=== PATIENT | male | born 1965 | race Caucasian/White ===

== ENCOUNTER 2018-02-20 19:32 | Emergency (ER) | payer BC, OTHER ==
--- NOTE | 2018-02-20 19:49 | PDOC ---
History of Present Illness - History of Present Illness Initial Comments: 02/20/18 20:24 HPI: The patient is a 52 year old male, with a significant past medical history of HTN (noncompliant for the past 8 months), who presents to the emergency department with, chest tightness for a week. He describes his chest pain as a constant, pressure-like pain worsening today with deep inspiration and shortness of breath. He endorses a recent long distance travel to [place] last week. As per patient, he was at his PCP, Dr. Olmedo office where he had an abnormal EKG done and was advised to report to the ED for further evaluation. He denies any calf pain or swelling. He denies any recent fevers, chills, headache or dizziness. He denies any recent nausea, vomit, diarrhea or constipation. He denies any recent dysuria, frequency, urgency or hematuria. PAST MEDICAL HISTORY: no significant history PAST SURGICAL HISTORY: no significant history FAMILY HISTORY: no pertinent history SOCIAL HISTORY: Pt lives with family and is employed. MEDICATIONS: reviewed ALLERGIES: As per nursing notes ROS: General: No fevers or chills, no weakness, no weight loss HEENT: No change in vision. No sore throat,. No ear pain +CardioVascular: Chest pain. Shortness of breath. Respiratory:No cough, or wheezing. Gastrointestinal: no nausea, vomiting, diarrhea or constipation, No rectal bleeding Genitourinary: No dysuria, hematuria, or frequency Musculoskeletal: No joint or muscle pain or swelling Neurologic: No headache, vertigo, dizziness or loss of consciousness Psychiatric: nor depression Skin: No rashes or easy bruising Endocrine: no increased thirst or abnormal weight change Allergic: no skin or latex allergy All other systems reviewed and normal Physical Exam: General: Well-nourished well-developed individual, no acute distress HEENT: Throat: Normal, tonsils normal, no erythema or exudate Neck: Supple, no meningeal signs, no lymphadenopathy Eyes::Pupils equal reactive and round, extraocular motion intact Chest: Nontender to palpation Cardiac: S1-S2 normal, regular rate and rhythm, no murmurs rubs or gallops Respiratory: Lungs clear to auscultation bilateral Abdomen: Soft, nondistended, normal bowel sounds, nontender to palpation diffusely Extremities: Warm, dry, no cyanosis, clubbing, or edema Skin: No rashes Neuro: Alert and oriented x3, nonfocal exam, grossly intact, normal gait Psych: Normal mood and affect <Carmen Pyle - Last Filed: 02/20/18 20:24> - General History Source: Patient Exam Limitations: No Limitations - History of Present Illness Initial Comments: A portion of this note was documented by scribe services under my direction. I have reviewed the details of the note, within reason, and agree with the documentation with the following case summary and management plan written by me. Patient treated in the ED. Nursing notes are reviewed and incorporated into the medical decision-making. Vital signs reviewed. Assessment and plan: This is a 52-year-old male comes in complaining of pleuritic-type chest pain 1 week. Patient said pain is associated with some shortness of breath. Patient has history significant for recent travel out of the country as well as hypertension. Patient saw his primary care doctor and was sent to the ED for further evaluation. Patient had an EKG that showed some left atrial enlargement and a probable old inferior [place]. Patient had CT angiogram of his chest to rule out PE which was negative. Patient had a chest x-ray that was negative Patient discharged home will follow-up with his primary care doctor 02/20/18 21:22 <Aracelis Willson I - Last Filed: 02/20/18 21:24> - General Chief Complaint: Pain Stated Complaint: CHEST TIGHTNESS X 1 WEEK Time Seen by Provider: 02/20/18 19:39 Past History <Carmen Pyle - Last Filed: 02/20/18 20:24> - Past Medical History Anemia: No Asthma: No Cancer: No Cardiac Disorders: No CVA: No COPD: No CHF: No Dementia: No Diabetes: No GI Disorders: No Disorders: No HTN: Yes Hypercholesterolemia: No Liver Disease: Yes (FATTY LIVER) Seizures: No Thyroid Disease: No - Surgical History Orthopedic Surgery: Yes (BACK) - Suicide/Smoking/Psychosocial Hx Smoking History: Never smoked Have you smoked in the past 12 months: No Information on smoking cessation initiated: No Hx Alcohol Use: No Drug/Substance Use Hx: No Substance Use Type: Alcohol Hx Substance Use Treatment: No <Aracelis Willson I - Last Filed: 02/20/18 21:24> - Past Medical History Allergies/Adverse Reactions: Allergies Allergy/AdvReac Type Severity Reaction Status Date / Time No Known Allergies Allergy Verified 02/20/18 19:35 Home Medications: Ambulatory Orders Lisinopril [Prinivil] 20 mg PO DAILY 06/07/14 *Physical Exam - Vital Signs Last Vital Signs Temp Pulse Resp BP Pulse Ox 98.3 F 77 16 155/102 H 96 02/20/18 19:36 02/20/18 19:36 02/20/18 19:36 02/20/18 20:20 02/20/18 19:36 <Carmen Pyle - Last Filed: 02/20/18 20:24> - Vital Signs Last Vital Signs Temp Pulse Resp BP Pulse Ox 98.3 F 77 16 153/109 H 96 02/20/18 19:36 02/20/18 19:36 02/20/18 19:36 02/20/18 19:36 02/20/18 19:36 <Aracelis Willson I - Last Filed: 02/20/18 21:24> Moderate Sedation - Procedure Monitoring Vital Signs: Procedure Monitoring Vital Signs Temperature 98.3 F 02/20/18 19:36 Pulse Rate 77 02/20/18 19:36 Respiratory Rate 16 02/20/18 19:36 Blood Pressure 155/102 H 02/20/18 20:20 O2 Sat by Pulse Oximetry (%) 96 02/20/18 19:36 <Carmen Pyle - Last Filed: 02/20/18 20:24> - Procedure Monitoring Vital Signs: Procedure Monitoring Vital Signs Temperature 98.3 F 02/20/18 19:36 Pulse Rate 77 02/20/18 19:36 Respiratory Rate 16 02/20/18 19:36 Blood Pressure 153/109 H 02/20/18 19:36 O2 Sat by Pulse Oximetry (%) 96 02/20/18 19:36 <Aracelis Willson I - Last Filed: 02/20/18 21:24> ED Treatment Course - LABORATORY CBC & Chemistry Diagram: 02/20/18 20:00 02/20/18 20:00 - ADDITIONAL ORDERS Additional order review: Laboratory Results 02/20/18 20:00 PT with INR 12.7 INR 1.14 02/20/18 20:00 RBC 5.06 MCV 88.3 MCHC 32.9 RDW 12.3 MPV 7.1 L Neutrophils % 50.3 Lymphocytes % 38.5 Monocytes % 9.1 Eosinophils % 1.6 Basophils % 0.5 <Carmen Pyle - Last Filed: 02/20/18 20:24> - LABORATORY CBC & Chemistry Diagram: 02/20/18 20:00 02/20/18 20:00 <Aracelis Willson I - Last Filed: 02/20/18 21:24> *DC/Admit/Observation/Transfer - Attestations Scribe Attestion: 02/20/18 20:26 Documentation prepared by Carmen Pyle, acting as medical pathology teacher for Aracelis Willson MD. <Carmen Pyle - Last Filed: 02/20/18 20:24> - Discharge Dispostion Decision to Admit order: No <Aracelis Willson I - Last Filed: 02/20/18 21:24> Diagnosis at time of Disposition: Atypical chest pain - Discharge Dispostion Disposition: HOME Condition at time of disposition: Stable - Referrals Referrals: Lola Ortega [Primary Care Provider] - - Patient Instructions Additional Instructions: Tylenol or Motrin as needed for pain. Call your doctor in the morning and get an appointment to follow up this week. Return to the emergency department immediately with ANY new, persistent or worsening symptoms. Continue any medications as previously prescribed by your physician. You should follow up with your primary doctor as soon as possible regarding today's emergency department visit. . Please make sure your doctor reviews the results of your emergency evaluation. Thank you for coming to the Emergency Department today for your care. It was a pleasure to see you today. Please note that your evaluation is INCOMPLETE until you follow-up with your doctor. - Post Discharge Activity
[2018-02-20 20:19] LABS: BASO % 0.5 % (0-2.0); EOS % 1.6 % (0-4.5); HEMATOCRIT 44.7 % (35.4-49); HEMOGLOBIN 14.7 GM/dl (11.7-16.9); LYMPH % 38.5 % (8-40); MCHC 32.9 g/dl (32.0-35.9); MEAN CELL VOLUME 88.3 fl (80-96); MEAN PLT VOLUME 7.1 fl (7.5-11.1); MONO % 9.1 % (3.8-10.2); NEUT % 50.3 % (42.8-82.8); PLATELET COUNT 406 K/MM3 (134-434); RBC 5.06 M/mm3 (4.00-5.60); RDW 12.3 % (11.9-15.9)
[2018-02-20 20:23] LABS: INR 1.14 (0.82-1.09); PROTHROMBIN TIME (PATIENT) 12.7 SEC (10.2-13.0)
[2018-02-20 20:28] LABS: ALBUMIN 4.2 g/dl (3.5-5.0); ALK PHOS 64 U/L (32-92); ANION GAP 5 MMOL/L (8-16); BILIRUBIN,TOTAL 0.7 mg/dl (0.2-1.0); BLOOD UREA NITROGEN 18 mg/dl (7-18); CHLORIDE 104 mmol/L (98-107); CO2 26 mmol/L (22-28); CREATININE 1.3 mg/dl (0.6-1.3); GLUCOSE,RANDOM 90 mg/dl (74-106); POTASSIUM 3.7 mmol/L (3.5-5.1); SGOT/AST 21 U/L (10-42); SGPT/ALT 23 U/L (10-40); SODIUM 135 mmol/L (136-145); TOT PROT 7.1 g/dl (6.4-8.3)
[2018-02-20 20:29] VITALS: BP 155/102; PULSE 77; TEMP 98.3; BMI 28.4
--- NOTE | 2018-02-21 09:34 | EKG ---
Test Reason : Blood Pressure : / mmHG Vent. Rate : 065 BPM Atrial Rate : 065 BPM P-R Int : 220 ms QRS Dur : 102 ms QT Int : 420 ms P-R-T Axes : 041 013 014 degrees QTc Int : 436 ms SINUS RHYTHM WITH 1ST DEGREE A-V BLOCK POSSIBLE LEFT ATRIAL ENLARGEMENT INFERIOR INFARCT , AGE UNDETERMINED ABNORMAL ECG NO PREVIOUS ECGS AVAILABLE Confirmed by MILADIS DE OLIVEIRA MD ([id number]) on 02/21/2018 9:33:47 AM Referred By: DR FISHER Confirmed By:MILADIS DE OLIVEIRA MD
== END 2018-02-20 21:27 | disposition home or self-care (01) ==
LOC: FER 19:32
DX: R07.89 Other chest pain (principal); I10 Essential (primary) hypertension; K76.0 Fatty (change of) liver, not elsewhere classified
CPT/HCPCS: 36415; 71045-TC-FY; 71275-TC; 80053; 82550; 82553; 84484; 85025; 85610; 93005; 99282-25

== ENCOUNTER 2018-07-20 17:48 | Emergency (ER) | payer BC ==
[2018-07-20 18:18] VITALS: TEMP 98.6; BMI 28.7
[2018-07-20 20:33] LABS: BASO % 0.6 % (0-2.0); EOS % 1.7 % (0-4.5); HEMATOCRIT 45.4 % (35.4-49); HEMOGLOBIN 15.4 GM/dl (11.7-16.9); LYMPH % 33.6 % (8-40); MCH 29.8 pg (25.7-33.7); MCHC 33.9 g/dl (32.0-35.9); MEAN PLT VOLUME 7.1 fl (7.5-11.1); MONO % 8.4 % (3.8-10.2); NEUT % 55.7 % (42.8-82.8); PLATELET COUNT 426 K/MM3 (134-434); RBC 5.16 M/mm3 (4.00-5.60); WHITE BLOOD COUNT 9.6 K/mm3 (4.0-10.8)
[2018-07-20 20:42] LABS: ALBUMIN 4.4 g/dl (3.4-5.0); BILIRUBIN,TOTAL 0.6 mg/dl (0.2-1); CALCIUM 9.3 mg/dl (8.5-10); TOT PROT 7.4 g/dl (6.4-8.2)
[2018-07-20 20:53] VITALS: BP 132/89; PULSE 79
--- NOTE | 2018-07-21 03:36 | PDOC ---
Documentation entered by Dione Purvis SCRIBE, acting as scribe for Megha Jones MD. Megha Jones MD: This documentation has been prepared by the innaibe, Dione Purvis SCRIBE, under my direction and personally reviewed by me in its entirety. I confirm that the documentation accurately reflects all work, treatment, procedures, and medical decision making performed by me. History of Present Illness - General Chief Complaint: CVA/TIA Stated Complaint: DIZZINESS, "FLUSHING IN THE FACE", "RT ARM STIFF" History Source: Patient Exam Limitations: No Limitations - History of Present Illness Initial Comments: 07/20/18 20:15 The patient is a 53-year-old male with a past medical history significant for HTN and HLD was sent to the emergency department by PMD Dr. Lola Ortega for evaluation for dizziness, flushed face and heaviness in the right arm. The patient presents with 2-3 weeks of symptoms. The patient reports hes been having a right hand stiffness, states it feels like hes not getting good circulation to the hand and has difficulty clenching his fist. The patient reports additional symptom of left sided facial flushing that feels like his one side of the face is hot and dizziness thats been present since starting the new BP medication. The patient states the dizziness is aggravated with standing up from kneeling. The patient reports that the symptoms are constant in quality but does vary in severity. The patient denies any known alleviating factor that helps to improve the symptoms. Denies facial droop, slurred speech, vision changes, weakness, numbness, tingling. Denies fever, chills, SOB, chest pain, abdominal pain, changes in bowel habits or urinary symptoms. Allergies: NKDA PCP: Dr. Kelvin Ortega. Past History - Past Medical History Allergies/Adverse Reactions: Allergies Allergy/AdvReac Type Severity Reaction Status Date / Time No Known Allergies Allergy Verified 07/20/18 18:10 Home Medications: Ambulatory Orders Chlorthalidone 25 mg PO DAILY 07/20/18 Ramipril [Altace] 20 mg PO DAILY 07/20/18 Anemia: No Asthma: No Cancer: No Cardiac Disorders: No CVA: No COPD: No CHF: No Dementia: No Diabetes: No GI Disorders: No Disorders: No HTN: Yes Hypercholesterolemia: No Liver Disease: Yes (FATTY LIVER) Seizures: No Thyroid Disease: No - Surgical History Orthopedic Surgery: Yes (BACK) - Suicide/Smoking/Psychosocial Hx Smoking History: Never smoked Have you smoked in the past 12 months: No Information on smoking cessation initiated: No Hx Alcohol Use: No Drug/Substance Use Hx: No Substance Use Type: Alcohol Hx Substance Use Treatment: No Review of Systems - Review of Systems Able to Perform ROS?: Yes Comments:: 07/20/18 20:02 Constitutional - Pt denies Fever, Chills, weakness, HEENT: +left sided facial flushing. flushed face. denies vision changes, sore throat Respiratory: Denies cough, sob, hemoptysis Cardiac: denies chest pain, palpitations, light headedness, leg swelling Abd/GI: denies abd pain, nausea, vomiting, blood per rectum, melena, diarrhea : denies dysuria, frequency, discharge Musculskelatal - +right arm "stiffness" denies back pain, joint swelling skin - denies bruising, erythema, rash neurological: +dizziness. denies headache, numbness, focal weakness, tingling, ataxia, weakness hematologic: denies anemia, easy bruising, easy bleeding *Physical Exam - Vital Signs Last Vital Signs Temp Pulse Resp BP Pulse Ox 98.6 F 96 H 18 134/97 97 07/20/18 17:48 07/20/18 17:48 07/20/18 17:48 07/20/18 17:48 07/20/18 17:48 - Physical Exam Comments: 07/20/18 20:01 GENERAL: The patient is awake, alert, and fully oriented, in no acute distress. HEAD: Normal with no signs of trauma. EYES: Pupils equal, round and reactive to light, extraocular movements intact, sclera anicteric, conjunctiva clear with no pallor. ENT: Ears normal, nares patent, oropharynx clear without exudates. Moist mucous membranes. NECK: Normal range of motion, supple without lymphadenopathy, JVD, or masses. LUNGS: Breath sounds equal, clear to auscultation bilaterally. No wheeze/ crackles. HEART: Regular rate and rhythm, normal S1 and S2 without murmur or rub. ABDOMEN: Soft/nontender/nondistended. No guarding or rebound. No palpable masses. No hepatosplenomegaly. EXTREMITIES: Normal range of motion, no edema. No clubbing or cyanosis. No cords, erythema, or tenderness. NEUROLOGICAL: Cranial nerves II through XII grossly intact. Normal speech, normal gait. PSYCH: Normal mood, normal affect. SKIN: Warm, Dry, normal turgor, no rashes or lesions noted. ED Treatment Course - LABORATORY CBC & Chemistry Diagram: 07/20/18 20:20 07/20/18 20:18 - ADDITIONAL ORDERS Additional order review: Laboratory Results 07/20/18 07/20/18 20:18 20:18 Sodium 138 Potassium 4.0 Chloride 102 Carbon Dioxide 27 Anion Gap 9 BUN 18 Creatinine 1.0 Est GFR (CKD-EPI)AfAm 99.15 Est GFR (CKD-EPI)NonAf 85.55 Random Glucose 97 Calcium 9.3 Total Bilirubin 0.6 AST 21 ALT 20 Alkaline Phosphatase 80 Creatine Kinase 223 Troponin I < 0.03 Total Protein 7.4 Albumin 4.4 07/20/18 20:20 RBC 5.16 MCV 88.0 MCHC 33.9 RDW 12.0 MPV 7.1 L Neutrophils % 55.7 Lymphocytes % 33.6 Monocytes % 8.4 Eosinophils % 1.7 Basophils % 0.6 Medical Decision Making - Medical Decision Making As noted above, this 53-year-old man with a history of hypertension/ hyperlipidemia was referred to this ER by his PMD for symptoms as noted above. Specifically, noncontrast head CT was requested to rule out CVA/bleed. Exam as noted, was essentially normal. Noncontrast head CT was performed and interpreted by Dr. Rangel of the radiology staff: Mild volume loss but otherwise no evidence of acute intracranial Abnormality. Twelve-lead electrocardiogram was performed: Normal sinus rhythm at 72 bpm; there is first-degree AV block and waveform pattern suggestive of inferior infarct, age undetermined. It is essentially identical to twelve-lead EKG tracing performed 02/20/18. CBC/chemistry profile with troponin level performed since patient had no laboratory evaluation since April of this year. Laboratory values are essentially normal with a nonelevated troponin (less than 0.03) Results discussed with the patient. He is scheduled to follow-up with cardiology group this coming week, followed by follow-up with his general medical doctor. He should continue his medications as prescribed. If he has worsening of his symptoms, he should return to the ER or see his PMD sooner *DC/Admit/Observation/Transfer Diagnosis at time of Disposition: Hypertension Qualifiers: Hypertension type: unspecified Qualified Code(s): I10 - Essential (primary) hypertension - Discharge Dispostion Disposition: HOME Condition at time of disposition: Stable - Referrals Referrals: Lola Ortega [Primary Care Provider] - - Patient Instructions Printed Discharge Instructions: Essential Hypertension Additional Instructions: Continue medications as prescribed Drink plenty of water Avoid salt in diet as previously advised Follow-up with [facility] next week as scheduled Followup with Dr Ortega as scheduled Return to ER if symptoms worsen - Post Discharge Activity
--- NOTE | 2018-07-21 11:44 | EKG ---
Test Reason : Blood Pressure : / mmHG Vent. Rate : 072 BPM Atrial Rate : 072 BPM P-R Int : 210 ms QRS Dur : 104 ms QT Int : 390 ms P-R-T Axes : 047 056 006 degrees QTc Int : 427 ms SINUS RHYTHM WITH 1ST DEGREE A-V BLOCK POSSIBLE LEFT ATRIAL ENLARGEMENT INFERIOR INFARCT (CITED ON OR BEFORE 20-FEB-2018) ABNORMAL ECG WHEN COMPARED WITH ECG OF 20-FEB-2018 19:51, NO SIGNIFICANT CHANGE WAS FOUND Confirmed by SHAY RASHEED MD ([id number]) on 07/21/2018 11:44:33 AM Referred By: MD EDWARD Confirmed By:SHAY RASHEED MD
== END 2018-07-20 21:10 | disposition home or self-care (01) ==
LOC: FER 17:48
DX: I10 Essential (primary) hypertension (principal); E78.5 Hyperlipidemia, unspecified; K76.0 Fatty (change of) liver, not elsewhere classified
CPT/HCPCS: 36415; 70450-TC; 80053; 82550; 82553; 84484; 85025; 93005; 99285-25

== ENCOUNTER 2022-08-01 11:07 | Day surgery (SDC) | payer BC ==
[2022-07-29 10:49] VITALS: BMI 27.3
[2022-08-01 12:54] VITALS: TEMP 97.5
[2022-08-01 13:09] VITALS: RESP 18
[2022-08-01 13:32] VITALS: BP 155/87; PULSE 62
== END 2022-08-01 13:26 | disposition home or self-care (01) ==
LOC: FASU-ENDO 11:07
PROVIDERS: ATTEND Internal Medicine Gastroenterology
PROC: 0DB98ZX Excision of Duodenum, Via Natural or Artificial Opening Endoscopic, Diagnostic (ICD-10-PCS; 2022-08-01)
PROC: 0DB78ZX Excision of Stomach, Pylorus, Via Natural or Artificial Opening Endoscopic, Diagnostic (ICD-10-PCS; 2022-08-01)
PROC: 0DB38ZX Excision of Lower Esophagus, Via Natural or Artificial Opening Endoscopic, Diagnostic (ICD-10-PCS; 2022-08-01)
PROC: 0DBN8ZX Excision of Sigmoid Colon, Via Natural or Artificial Opening Endoscopic, Diagnostic (ICD-10-PCS; principal; 2022-08-01 12:03)
DX: Z12.11 Encounter for screening for malignant neoplasm of colon (principal); K63.5 Polyp of colon; K29.70 Gastritis, unspecified, without bleeding; K44.9 Diaphragmatic hernia without obstruction or gangrene; K29.80 Duodenitis without bleeding; K20.90 Esophagitis, unspecified without bleeding; B96.81 Helicobacter pylori [H. pylori] as the cause of diseases classified elsewhere
CPT/HCPCS: 88305-TC; 88312-TC; 88342-TC